=== PATIENT | male | born 1995 | race Caucasian/White ===

== ENCOUNTER 2017-08-30 12:01 | Emergency (ER) | payer SELFPAY ==
[2017-08-30 14:11] VITALS: RESP 20; O2SAT 100
[2017-08-30 14:38] LABS: URINE AMORPHOUS SEDIMENT FEW /ul (<OCC); URINE BACTERIA RARE (<OCC); URINE BILIRUBIN NEGATIVE (NEGATIVE); URINE BLOOD NEGATIVE (NEGATIVE); URINE CLARITY Hazy (Clear); URINE COLOR Yellow (YELLOW); URINE GLUCOSE (UA) NORMAL (Normal); URINE LEUKOCYTE ESTERASE NEG Leu/uL (Negative); URINE NITRATE NEGATIVE (NEGATIVE); URINE PROTEIN NEGATIVE (NEGATIVE); URINE UROBILINOGEN NORMAL mg/dL (0.2-1.0)
--- NOTE | 2017-08-30 14:43 | US ---
Testicular ultrasound History: Left testicular pain. Comparison: None available. Technique: Real-time sonography was performed through the scrotum. Findings: Right testicle: 4.5 x 2.0 x 3.1 centimeters. Homogeneous echotexture. Normal flow. Left testicle: 4.5 x 2.0 x 2.6 centimeters. Homogeneous echotexture. Normal flow. Right epididymis: 1.1 x 1.1 x 1.3 centimeters. Normal flow. Left epididymis: 1.0 x 1.0 x 1.1 centimeters. Normal flow. Hypoechoic left epididymal cyst measuring 6 x 3 x 4 millimeters. Small left scrotal varicocele noted measuring up to 3 millimeters. Impression: Normal flow in the bilateral testicles. 6 millimeter left epididymal cyst. Small left scrotal varicocele.
--- NOTE | 2017-08-30 15:26 | C.PDOC ---
History Of Present Illness 21yo male presents to ER for evaluation of left testicular pain for the past 2 days. He denies any trauma, injuries, dysuria or penile discharge. States he has not taken any medication for his pain. No other complaints. Time Seen by Provider: 08/30/17 13:15 Chief Complaint (Nursing): Male Genitourinary History Per: Patient History/Exam Limitations: no limitations Onset/Duration Of Symptoms: Days (2) Current Symptoms Are (Timing): Still Present Quality Of Discomfort: "Pain" Associated Symptoms: denies: Urinary Symptoms Past Medical History Reviewed: Historical Data, Nursing Documentation, Vital Signs Vital Signs: Last Vital Signs Temp 97.4 F L 08/30/17 15:43 Pulse 61 08/30/17 15:43 Resp 20 08/30/17 15:43 BP 130/65 08/30/17 15:43 Pulse Ox 100 08/30/17 15:43 - Medical History PMH: No Chronic Diseases Surgical History: No Surg Hx Family History: States: No Known Family Hx - Social History Hx Alcohol Use: No Hx Substance Use: No - Immunization History Hx Tetanus Toxoid Vaccination: No Hx Influenza Vaccination: No Hx Pneumococcal Vaccination: No Review Of Systems Except As Marked, All Systems Reviewed And Found Negative. Genitourinary: Positive for: Other (left testicular pain) Physical Exam - Physical Exam Appears: Non-toxic Skin: Normal Color, Warm, Dry Eye(s): bilateral: Normal Inspection Neck: Supple Lymphatic: No Adenopathy Chest: Symmetrical Male Genital: Testicular Tenderness (left testicular tenderness; both testicles descended), No Circumcised, No Other (lesions, penile discharge, cellulitic component.) Neurological/Psych: Oriented x3, Normal Speech, Normal Cognition ED Course And Treatment O2 Sat by Pulse Oximetry: 100 (RA) Pulse Ox Interpretation: Normal Medical Decision Making Medical Decision Making: Impression: Testicular pain Plan: -- Motrin 600 mg PO -- Urine culture -- US Testes Duplex -- Chlamydia/GC RNA, TMA Disposition Counseled Patient/Family Regarding: Studies Performed, Diagnosis, Need For Followup, Rx Given - Disposition Referrals: Kuldip Harrington MD [Staff Provider] - [facility] [Outside] Disposition: HOME/ ROUTINE Disposition Time: 16:11 Condition: STABLE Additional Instructions: follow up with clinic or urology in 2 days call to make an appointment take medications as prescribed return to ER if symptoms worsens or progress Prescriptions: Naproxen [Naprosyn] 500 mg PO BID PRN #16 tab PRN Reason: Pain, Moderate (4-7) Instructions: Testicle Pain (ED) Forms: [facility] (Slovenian), General Discharge Instructions - Clinical Impression Clinical Impression: Testicular cyst - Scribe Statement The provider has reviewed the documentation as recorded by the Scribe (Martha Carlos) Provider Attestation: All medical record entries made by the Scribe were at my direction and personally dictated by me. I have reviewed the chart and agree that the record accurately reflects my personal performance of the history, physical exam, medical decision making, and the department course for this patient. I have also personally directed, reviewed, and agree with the discharge instructions and disposition.
[2017-08-30 15:44] VITALS: BP 130/65; PULSE 61; TEMP 97.4
== END 2017-08-30 16:30 | disposition home or self-care (01) ==
LOC: C.ER 12:01
DX: N44.2 Benign cyst of testis (principal)

== ENCOUNTER 2017-11-25 11:56 | Emergency (ER) | payer OTHER ==
[2017-11-25 11:58] VITALS: BMI 22.4
[2017-11-25 12:04] VITALS: TEMP 98.5
[2017-11-25 12:45] LABS: SQUAMOUS EPITHIAL < 1 /hpf (0-5); URINE BILIRUBIN NEGATIVE (NEGATIVE); URINE BLOOD NEGATIVE (NEGATIVE); URINE CLARITY Hazy (Clear); URINE COLOR Amber (YELLOW); URINE GLUCOSE (UA) NORMAL (Normal); URINE LEUKOCYTE ESTERASE NEG Leu/uL (Negative); URINE PROTEIN 1+ mg/dL (NEGATIVE); URINE UROBILINOGEN NORMAL mg/dL (0.2-1.0)
[2017-11-25 12:51] LABS: BASO # 0.1 K/uL (0.0-0.2); BASO % 0.7 % (0.0-2.0); EOS # 0.1 K/uL (0.0-0.7); EOS % 1.3 % (0.0-4.0); LYMPH # 1.9 K/uL (1.0-4.3); LYMPH % 23.5 % (20.0-40.0); MEAN CELL VOLUME 95.1 fL (80.0-94.0); MEAN CORPUSCULAR HEMOGLOBIN 32.5 pg (27.0-31.0); MEAN CORPUSCULAR HGB CONC 34.2 g/dL (33.0-37.0); MONO # 0.7 K/uL (0.0-0.8); MONO % 8.8 % (0.0-10.0); NEUT # 5.4 K/uL (1.8-7.0); NEUT % 65.7 % (50.0-75.0); NRBC % 0.1 % (0.0-2.0); RBC 5.21 Mil/uL (4.40-5.90); RED CELL DISTRIBUTION WIDTH 13.1 % (11.5-14.5); WHITE BLOOD COUNT 8.3 K/uL (4.8-10.8)
[2017-11-25 13:02] LABS: ALB/GLOB RATIO 1.4 (1.0-2.1); ALBUMIN 4.6 g/dL (3.5-5.0); ALT/SGPT 21 U/L (21-72); AST/SGOT 19 U/L (17-59); BLOOD UREA NITROGEN 11 mg/dL (9-20); CALCIUM 9.6 mg/dl (8.6-10.4); GFR AFRICAN-AMERICAN > 60; GFR NON-AFRICAN AMERICAN > 60
[2017-11-25 13:12] LABS: PROTHROMBIN TIME 11.3 SECONDS (9.7-12.2)
--- NOTE | 2017-11-25 13:30 | C.PDOC ---
History Of Present Illness 21 y/o male presents to ED with c/o left sided testicular pain for 3+ months. Patient was evaluated for the same symptoms when the symptoms started but now swelling has increased. Notes he hasnt followed up with specialist secondary to insurance. Patient reports last sexual intercourse was 4 months ago. Denies fever, abdominal pain, dysuria, hematuria, urinary frequency, penile discharge or any other complaints at this time. Time Seen by Provider: 11/25/17 12:09 Chief Complaint (Nursing): Male Genitourinary History Per: Patient History/Exam Limitations: no limitations Onset/Duration Of Symptoms: Days Current Symptoms Are (Timing): Still Present Quality Of Discomfort: "Pain" Past Medical History Reviewed: Historical Data, Nursing Documentation, Vital Signs Vital Signs: Last Vital Signs Temp 98.5 F 11/25/17 11:58 Pulse 45 L 11/25/17 14:59 Resp 16 11/25/17 14:59 BP 108/68 11/25/17 14:59 Pulse Ox 98 11/25/17 17:08 - Medical History PMH: No Chronic Diseases Surgical History: No Surg Hx Family History: States: No Known Family Hx - Social History Hx Alcohol Use: No Hx Substance Use: No - Immunization History Hx Tetanus Toxoid Vaccination: No Hx Influenza Vaccination: No Hx Pneumococcal Vaccination: No Review Of Systems Constitutional: Negative for: Fever, Chills Cardiovascular: Negative for: Chest Pain Gastrointestinal: Negative for: Nausea, Vomiting, Abdominal Pain Genitourinary: Positive for: Other (Testicular pain). Negative for: Dysuria, Frequency, Hematuria Musculoskeletal: Negative for: Back Pain Skin: Negative for: Rash Physical Exam - Physical Exam Appears: Non-toxic, No Acute Distress Skin: Warm, Dry, No Rash Head: Atraumatic, Normacephalic Eye(s): bilateral: Normal Inspection, EOMI Nose: Normal Oral Mucosa: Moist Neck: Normal ROM, Supple Chest: Symmetrical Cardiovascular: Rhythm Regular Respiratory: Normal Breath Sounds, No Rales, No Rhonchi, No Wheezing Gastrointestinal/Abdominal: Soft, No Tenderness, No Guarding, No Rebound Back: No CVA Tenderness, No Vertebral Tenderness Male Genital: Testicular Tenderness (Superior left), Testicular Swelling ( Superior left), No Inguinal Swelling, No Scrotal Swelling, Circumcised Extremity: Normal ROM Neurological/Psych: Oriented x3, Normal Speech, Normal Cognition ED Course And Treatment - Laboratory Results Result Diagrams: 11/25/17 12:42 11/25/17 12:42 O2 Sat by Pulse Oximetry: 98 (RA) Pulse Ox Interpretation: Normal - CT Scan/US Testicular US Other Rad Studies (CT/US): Read By Radiologist, Radiology Report Reviewed CT/US Interpretation: HISTORY: pain. TECHNIQUE: Realtime sonography through the scrotum with color and doppler flow. COMPARISON: None Available. FINDINGS : RIGHT TESTICLE: Measures 4.6 x 2.0 x 3.0 cm. Homogeneous echotexture. No mass. Normal flow. RIGHT EPIDIDYMIS: Normal size and morphology. Normal vascularity. LEFT TESTICLE: Measures 4.7 x 1.8 x 2.7 cm. Homogeneous echotexture. No mass. Normal flow. LEFT EPIDIDYMIS: Normal size and morphology. Normal vascularity. 2 epididymal cysts, 3 millimeters and 4 millimeters, respectively. HYDROCELE: None. VARICOCELE: None. OTHER FINDINGS: None. IMPRESSION: Two small left epididymal cysts. No evidence of testicular torsion or epididymo-orchitis. . Progress Note: Rocephin, Azithromycin administered secondary to GC/chalm test positive at last visit. UA ordered. Pt is instructed to follow up with Urologist in1-2 days. Clinic information given. Disposition - Disposition Referrals: Eldon Garcia Jr., MD [Staff Provider] - [facility] [Outside] Disposition: HOME/ ROUTINE Disposition Time: 14:18 Condition: STABLE Additional Instructions: Follow up with clinic/urologist in 1-2 days. Return to eR if symptoms persist or worsen. Instructions: Epididymitis (DC) Forms: [facility] (Honduran), Work Excuse - Clinical Impression Clinical Impression: Testicular cyst - PA / GEOLOGICAL SCOUT / Resident Statement MD/DO has reviewed & agrees with the documentation as recorded. - Scribe Statement The provider has reviewed the documentation as recorded by the Regibmassimo Diaz All medical record entries made by the Sarah were at my direction and personally dictated by me. I have reviewed the chart and agree that the record accurately reflects my personal performance of the history, physical exam, medical decision making, and the department course for this patient. I have also personally directed, reviewed, and agree with the discharge instructions and disposition.
--- NOTE | 2017-11-25 13:59 | US ---
HISTORY: pain TECHNIQUE: Realtime sonography through the scrotum with color and doppler flow. COMPARISON: None Available. FINDINGS: RIGHT TESTICLE: Measures 4.6 x 2.0 x 3.0 cm. Homogeneous echotexture. No mass. Normal flow. RIGHT EPIDIDYMIS: Normal size and morphology. Normal vascularity. LEFT TESTICLE: Measures 4.7 x 1.8 x 2.7 cm. Homogeneous echotexture. No mass. Normal flow. LEFT EPIDIDYMIS: Normal size and morphology. Normal vascularity. 2 epididymal cysts, 3 millimeters and 4 millimeters, respectively. HYDROCELE: None. VARICOCELE: None. OTHER FINDINGS: None. IMPRESSION: Two small left epididymal cysts. No evidence of testicular torsion or epididymo-orchitis. .
[2017-11-25] MEDS ORDERED: Azithromycin 100 mg/5 ml Susp (15 ml) PO STA (14:17)
[2017-11-25] MEDS ORDERED: cefTRIAXone (Rocephin) 250 mg Inj IM STA (14:17)
[2017-11-25 14:35] VITALS: RESP 16
[2017-11-25 15:01] VITALS: BP 108/68; PULSE 45
[2017-11-25 16:56] VITALS: O2SAT 98
== END 2017-11-25 15:19 | disposition home or self-care (01) ==
LOC: C.ER 11:56
DX: N44.2 Benign cyst of testis (principal)
CPT/HCPCS: 76870; 80053; 81001; 82948; 85025; 85610; 85730; 87086; 87491; 87591; 96372; 99285; J0696